=== PATIENT | male | born 1980 | race Caucasian/White ===

== ENCOUNTER 2018-06-14 19:32 | Emergency (ER) | payer MEDICAID, SELFPAY ==
[2018-06-14 19:36] VITALS: BP 134/91; PULSE 71; RESP 18; TEMP 36.6; O2SAT 99
--- NOTE | 2018-06-14 19:52 | W.ED.GENAD ---
Discharge Plan Disposition Patient Disposition: HOME Discharge Details Chief Complaint: RashLesion Clinical Impression: Tick bite of back Primary Care Provider: Sharonda,Local ED Provider: Asim Xie Home Meds and New Rx's Prescriptions: No Action No Known Home Meds RF: 0 Discharge Instructions Instructions: Tick Bite (ED) Additional Instructions: You were given doxycycline 200 mg prophylactically. Please contact your primary care physician to arrange follow-up. Return to the ER for any worsening or new concerning symptoms. Discharge Data Discharge Date/Time-TO BE ENTERED AT DEPARTURE: 06/14/18 20:40 Medical Decision Making 19:50 -- 38yo m with chronic lyme disease, post antibiotic treatment, now being treated with dietary modification, bartonella infection from tick bite, here with tick biting right posterior mid back. Tick was removed by nursing before I examined patient. Intact tick examined and is a deer tick. Not engorged. Patient concerned for retained mouth part and that this was how he had been infected in past with tick born disease, and requests wound exploration and superficial dissection. LET applied. Will give doxycyline 200mg PO. 20:24 -- Patient provided verbal consent to superficial dissection. Area prepped with betadine and scrubbed. Superfical blut dissection with tweezers used to remove small retained mouth part. All retained parts removed. HPI General Mode of arrival: ambulatory. Date/Time Provider Initiated Documentation: 06/14/18 19:52. Limitations to Documentation: no limitations. Information obtained by: patient. HPI Narrative: 38yo m with prior history of chronic lung disease, Bartonella after tick bite, here with tick biting right flank. Tick bite is severe. Constant. Unsure as to how long it has been intact. He thinks he may have gotten it while in [place] 1 week ago. No associated fever. Related Data Home Medications Medication Instructions Recorded Confirmed Unknown [No Known Home Meds] 10/09/13 06/14/18 Allergies Allergy/AdvReac Type Severity Reaction Status Date / Time shellfish derived Allergy Hives Unverified 06/14/18 19:35 General Stated Complaint: RashLesion VASU: 5 Review of Systems Constitutional Reports fatigue (chronic intermittent) and Denies fever(s) Integumentary/Breasts Denies rash Endocrine Reports fatigue (chronic intermittent) COUNT INCLUDES THE [facility] Medical History Lyme disease (Acute) Social History Smoking/Tobacco Use Status: Never Alcohol Intake: never Drug use: Socially Substance use type: does not use Do you feel safe at home: Yes Do you feel safe in your relationship?: Yes Exam Const General: cooperative and healthy appearing Orientation: alert and awake Skin Other: tick bite right flank with localized 2mm erythema at bite site, no induration, no fluctuance, no erythema migrans Course Vital Signs Temperature 36.6 C 06/14/18 19:36 Pulse 71 06/14/18 19:36 Respiratory Rate 18 06/14/18 19:36 Blood Pressure 134/91 H 06/14/18 19:36 Pulse Oximetry 99 06/14/18 19:36 Temperature 36.6 C 06/14/18 19:36 Temperature Source Temporal Artery Scan 06/14/18 19:36 Pulse 71 06/14/18 19:36 Respiratory Rate 18 06/14/18 19:36 Respiratory Effort 06/14/18 19:36 Blood Pressure 134/91 H 06/14/18 19:36 Blood Pressure Position Sitting 06/14/18 19:36 Pulse Oximetry 99 06/14/18 19:36 Oxygen Delivery Method Room Air 06/14/18 19:36 Oxygen Flow Rate 0 06/14/18 19:36
[2018-06-14] MEDS: Lidocaine/Epinephri/Tetracaine Topical Gel 3 ML (19:55)
--- NOTE | 2018-06-14 20:03 | ED.GENADUL_ITS ---
Discharge Plan Disposition Patient Disposition: HOME Discharge Details Chief Complaint: RashLesion Clinical Impression: Tick bite of back Primary Care Provider: Sharonda,Local ED Provider: Asim Xie Home Meds and New Rx's Prescriptions: No Action No Known Home Meds RF: 0 Discharge Instructions Instructions: Tick Bite (ED) Additional Instructions: You were given doxycycline 200 mg prophylactically. Please contact your primary care physician to arrange follow-up. Return to the ER for any worsening or new concerning symptoms. Discharge Data Discharge Date/Time-TO BE ENTERED AT DEPARTURE: 06/14/18 20:40 Medical Decision Making 19:50 -- 38yo m with chronic lyme disease, post antibiotic treatment, now being treated with dietary modification, bartonella infection from tick bite, here with tick biting right posterior mid back. Tick was removed by nursing before I examined patient. Intact tick examined and is a deer tick. Not engorged. Patient concerned for retained mouth part and that this was how he had been infected in past with tick born disease, and requests wound exploration and superficial dissection. LET applied. Will give doxycyline 200mg PO. 20:24 -- Patient provided verbal consent to superficial dissection. Area prepped with betadine and scrubbed. Superfical blut dissection with tweezers used to remove small retained mouth part. All retained parts removed. HPI General Mode of arrival: ambulatory . Date/Time Provider Initiated Documentation: 06/14/18 19:52 . Limitations to Documentation: no limitations . Information obtained by: patient . HPI Narrative: 38yo m with prior history of chronic lung disease, Bartonella after tick bite, here with tick biting right flank. Tick bite is severe. Constant. Unsure as to how long it has been intact. He thinks he may have gotten it while in [place] 1 week ago. No associated fever. Related Data Home Medications Medication Instructions Recorded Confirmed Unknown [No Known Home Meds] 10/09/13 06/14/18 Allergies Allergy/AdvReac Type Severity Reaction Status Date / Time shellfish derived Allergy Hives Unverified 06/14/18 19:35 General Stated Complaint: RashLesion VASU: 5 Review of Systems Constitutional Reports fatigue (chronic intermittent) and Denies fever(s) Integumentary/Breasts Denies rash Endocrine Reports fatigue (chronic intermittent) [facility] Medical History Lyme disease (Acute) Social History Smoking/Tobacco Use Status: Never Alcohol Intake: never Drug use: Socially Substance use type: does not use Do you feel safe at home: Yes Do you feel safe in your relationship?: Yes Exam Const General: cooperative and healthy appearing Orientation: alert and awake Skin Other: tick bite right flank with localized 2mm erythema at bite site, no induration, no fluctuance, no erythema migrans Course Vital Signs Temperature 36.6 C 06/14/18 19:36 Pulse 71 06/14/18 19:36 Respiratory Rate 18 06/14/18 19:36 Blood Pressure 134/91 H 06/14/18 19:36 Pulse Oximetry 99 06/14/18 19:36 Temperature 36.6 C 06/14/18 19:36 Temperature Source Temporal Artery Scan 06/14/18 19:36 Pulse 71 06/14/18 19:36 Respiratory Rate 18 06/14/18 19:36 Respiratory Effort 06/14/18 19:36 Blood Pressure 134/91 H 06/14/18 19:36 Blood Pressure Position Sitting 06/14/18 19:36 Pulse Oximetry 99 06/14/18 19:36 Oxygen Delivery Method Room Air 06/14/18 19:36 Oxygen Flow Rate 0 06/14/18 19:36
[2018-06-14] MEDS: Doxycycline Hyclate 100 MG CAP 200 MG PO (20:32)
[2018-06-14 20:33] VITALS: BP 134/82; PULSE 74; RESP 14; TEMP 37; O2SAT 98
== END 2018-06-14 20:40 | disposition home or self-care (01) ==
PROVIDERS: Emergency Provider Student in an Organized Health Care Education/Training Program
DX: S20.461A Insect bite (nonvenomous) of right back wall of thorax, initial encounter (principal); W57.XXXA Bitten or stung by nonvenomous insect and other nonvenomous arthropods, initial encounter
CPT/HCPCS: 99283